=== PATIENT | male | born 1930 | race Caucasian/White ===

== ENCOUNTER 2020-08-03 10:26 | Emergency (ER) | payer OTHER ==
[~2020-08-03] VITALS: Ht 167.6 cm; Wt 66.9 kg
[~2020-08-03 10:26] MED LIST: ACETAMINOPHEN325 M1 PO; ASPIRIN EC81 M1 PO; BACTRIM DS TAB1 EACH; LIPITOR80 MG PO; LISINOPRIL5 MG PO; LORTAB 5 MG/5001 TA1; ZETIA10 MG PO
[2020-08-03] MEDS ORDERED: ASA81BEC PO (10:46)
[2020-08-03] MEDS ORDERED: CHOLESTEROL PO (10:47)
[2020-08-03 11:04] LABS: ABSOLUTE EOSINOPHILS 0.1 thou/uL (0.0-0.7); ABSOLUTE LYMPHOCYTES 1.4 thou/uL (0.8-5.3); ABSOLUTE MONOCYTES 0.3 thou/uL (0.0-1.2); ABSOLUTE NEUTROPHILS 1.9 thou/uL (1.6-8.1); BASOPHILS 0.8 %; EOSINOPHILS 2.7 %; HEMATOCRIT 33.7 % (42.0-52.0); HEMOGLOBIN 11.6 gm/dL (14.0-18.0); LYMPHOCYTES 36.7 %; MCH 30.2 pg (26.0-34.0); MCHC 34.4 g/dL (28.0-37.0); MCV 87.9 fL (80.0-100.0); MPV 7.9 fl. (7.2-11.1); NUCLEATED RBCS 0 /100WBC; PLATELET COUNT* 167 thou/uL (150-400); POLYS 51.8 %; RBC 3.83 mil/uL (4.50-6.00); RDW-CV 13.8 % (10.5-14.5); WBC 3.7 thou/uL (4.0-11.0)
[2020-08-03 11:12] LABS: APTT 26.4 Seconds (25.0-31.3); PROTIME 10.6 Seconds (9.20-11.50)
[2020-08-03 11:15] LABS: CALCIUM 9.1 mg/dL (8.5-10.1); CREATININE 1.2 mg/dL (0.6-1.3); POTASSIUM 3.9 mmol/L (3.5-5.1)
[2020-08-03 11:17] LABS: ALBUMIN 3.4 g/dL (3.4-5.0); TOTAL BILIRUBIN 0.3 mg/dL (<0.1-1.0); TOTAL PROTEIN 6.8 g/dL (6.4-8.2)
[2020-08-03 11:41] LABS: URINE BILIRUBIN NEGATIVE (Negative); URINE BLOOD NEGATIVE (Negative); URINE CLARITY CLEAR; URINE COLOR YELLOW; URINE GLUCOSE-RANDOM NEGATIVE (Negative); URINE KETONES NEGATIVE (Negative); URINE LEUKOCYTES-REFLEX NEGATIVE (Negative); URINE NITRITE-REFLEX NEGATIVE (Negative); URINE PROTEIN NEGATIVE (Negative); URINE SPECIFIC GRAVITY 1.025 (1.005-1.030)
[2020-08-03 13:07] VITALS: BP 147/64
--- NOTE | 2020-08-03 16:20 | EKG ---
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: DSL : 1930 Requested By: Ilya Caballero Order Number: [id number] MD: Carter Preciado Measurements Intervals [place] Rate: 60 P: [place]: QRS: -83 QRSD: 142 T: 76 QT: 445 QTc: 445 Interpretive Statements Junctional rhythm Nonspecific IVCD with LAD Compared to ECG 05/04/2013 10:19:39 Junctional rhythm now present Intraventricular conduction delay now present Sinus rhythm no longer present Right bundle-branch block no longer present T-wave abnormality no longer present Possible ischemia no longer present Electronically Signed On 08-03-2020 16:20:34 CDT by Carter Preciado [email or web address] <ELECTRONICALLY SIGNED> By: Carter Preciado MD, [facility] 08/03/20 1620 1039 1039 Carter Preciado MD, [facility] /EPI
== END 2020-08-03 13:07 | disposition home or self-care (01) ==
LOC: M.ERS 10:26
PROVIDERS: Emergency Medicine Emergency Medical Services
DX: R41.0 Disorientation, unspecified (principal); I50.9 Heart failure, unspecified; I25.10 Atherosclerotic heart disease of native coronary artery without angina pectoris; Z20.828 Contact with and (suspected) exposure to other viral communicable diseases; Z95.5 Presence of coronary angioplasty implant and graft; Z95.0 Presence of cardiac pacemaker; Z88.8 Allergy status to other drugs, medicaments and biological substances

== ENCOUNTER 2020-12-23 14:53 | Emergency (ER) | payer OTHER ==
[~2020-12-23] VITALS: Ht 165.1 cm; Wt 64.0 kg
[~2020-12-23 14:53] MED LIST changes: +ASA81BEC PO; +CHOLESTEROL PO
[2020-12-23] MEDS ORDERED: [UNRECOGNIZED DRUG - OTHER] (15:06)
[2020-12-23 15:28] LABS: ABSOLUTE BASOPHILS 0.1 thou/uL (0.0-0.2); ABSOLUTE EOSINOPHILS 0.1 thou/uL (0.0-0.7); ABSOLUTE LYMPHOCYTES 1.6 thou/uL (0.8-5.3); ABSOLUTE MONOCYTES 0.5 thou/uL (0.0-1.2); ABSOLUTE NEUTROPHILS 3.7 thou/uL (1.6-8.1); BASOPHILS 0.9 %; EOSINOPHILS 1.2 %; HEMATOCRIT 28.4 % (42.0-52.0); HEMOGLOBIN 9.5 gm/dL (14.0-18.0); MCH 29.1 pg (26.0-34.0); MCHC 33.3 g/dL (28.0-37.0); MCV 87.4 fL (80.0-100.0); MONOCYTES 8.8 %; NUCLEATED RBCS 0 /100WBC; PLATELET COUNT* 170 thou/uL (150-400); POLYS 62.1 %; RBC 3.26 mil/uL (4.50-6.00); RDW-CV 15.5 % (10.5-14.5); WBC 5.9 thou/uL (4.0-11.0)
[2020-12-23 15:36] LABS: CALCIUM 9.1 mg/dL (8.5-10.1); CREATININE 1.1 mg/dL (0.6-1.3); POTASSIUM 4.3 mmol/L (3.5-5.1)
[2020-12-23 15:41] LABS: ALBUMIN 3.4 g/dL (3.4-5.0); TOTAL BILIRUBIN 0.4 mg/dL (<0.1-1.0); TOTAL PROTEIN 6.6 g/dL (6.4-8.2)
[2020-12-23 16:00] LABS: PROTIME 10.5 Seconds (9.20-11.50)
[2020-12-23 17:12] LABS: URINE BILIRUBIN NEGATIVE (Negative); URINE BLOOD NEGATIVE (Negative); URINE CLARITY CLEAR; URINE COLOR YELLOW; URINE GLUCOSE-RANDOM NEGATIVE (Negative); URINE KETONES NEGATIVE (Negative); URINE LEUKOCYTES-REFLEX NEGATIVE (Negative); URINE NITRITE-REFLEX NEGATIVE (Negative); URINE PROTEIN NEGATIVE (Negative); URINE SPECIFIC GRAVITY >= 1.030 (1.005-1.030); URINE UROBILINOGEN 0.2 E.U./dl (0.2-1.0)
[2020-12-23] MEDS ORDERED: MIRALAX17 GM PO (19:06)
[2020-12-23 19:30] VITALS: BP 128/65
--- NOTE | 2020-12-25 15:26 | EKG ---
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[employer]: [facility] : 1930 Requested By: Elijah Cobos Order Number: [id number] MD: Carter Preciado Measurements Intervals [place] Rate: 78 P: 0 NC: 61 QRS: -86 QRSD: 140 T: 77 QT: 407 QTc: 464 Interpretive Statements Supraventricular rhythm with bigeminal character Nonspecific IVCD with LAD Compared to ECG 08/03/2020 10:39:17 Atrial premature complex(es) now present Bigeminal rhythm is noted Electronically Signed On 12-25-2020 15:26:04 TOOLER by Carter Precaido [email or web address] <ELECTRONICALLY SIGNED> By: Carter Preciado MD, [facility] 12/25/20 1526 1516 1516 Carter Preciado MD, [facility] /EPI
== END 2020-12-23 19:31 | disposition home or self-care (01) ==
LOC: M.ERS 14:53
PROVIDERS: Physician Assistant
DX: D64.9 Anemia, unspecified (principal); K56.41 Fecal impaction; R19.5 Other fecal abnormalities; I48.91 Unspecified atrial fibrillation; I25.10 Atherosclerotic heart disease of native coronary artery without angina pectoris; E78.5 Hyperlipidemia, unspecified; Z88.8 Allergy status to other drugs, medicaments and biological substances

== ENCOUNTER 2020-12-31 15:51 | Emergency (ER) | payer OTHER ==
[~2020-12-31] VITALS: Ht 165.1 cm; Wt 64.0 kg
[~2020-12-31 15:51] MED LIST changes: +MIRALAX17 GM PO; +[UNRECOGNIZED DRUG - OTHER]
[2020-12-31] MEDS ORDERED: CITRATE OF MAG296 M1 PO (17:57)
[2020-12-31 18:21] VITALS: BP 143/71
== END 2020-12-31 18:20 | disposition home or self-care (01) ==
LOC: M.ERS 15:51
DX: K59.00 Constipation, unspecified (principal); E78.5 Hyperlipidemia, unspecified; I48.91 Unspecified atrial fibrillation; I25.10 Atherosclerotic heart disease of native coronary artery without angina pectoris; Z88.8 Allergy status to other drugs, medicaments and biological substances